=== PATIENT | female | born 1985 | race Caucasian/White ===

== ENCOUNTER 2020-12-11 22:33 | Outpatient (CLI) | payer MEDICAID | END 2020-12-11 23:39 | disposition home or self-care (01) | LOC: LDOP 22:33 | PROVIDERS: ATTEND Obstetrics & Gynecology | DX: O62.9 Abnormality of forces of labor, unspecified (principal); Z3A.00 Weeks of gestation of pregnancy not specified | CPT/HCPCS: 59025 ==

== ENCOUNTER 2020-12-12 01:11 | Inpatient (IN) | payer MEDICAID ==
[2020-12-12] VITALS (7 sets, daily range): BP systolic 90–122; BP diastolic 50–81
[~2020-12-12] VITALS: Ht 147.3 cm; Wt 65.9 kg
[2020-12-12] MEDS ORDERED: LIDOCAINE 1%, 20ML ONE (01:28)
[2020-12-12] MEDS ORDERED: NEWBORN KIT ONE (01:28)
[2020-12-12] MEDS ORDERED: OXYTOCIN 30U/ 0.9% NaCL 500ML 500 ML ONE (01:28)
[2020-12-12] MEDS ORDERED: MISOPROSTOL 200 MCG TABLET ONE (01:28)
[2020-12-12] MEDS ORDERED: LACTATED RINGERS 1,000 ML IV SCH ×2 (01:30→03:30)
[2020-12-12] MEDS ORDERED: CALCIUM CARBONATE 500 MG TAB.CHEW PO PRN ×2 (01:30→06:30)
[2020-12-12] MEDS ORDERED: FENTANYL PF 100 MCG/2ML IV PRN (01:30)
[2020-12-12] MEDS ORDERED: D5%-LACTATED RINGERS 1,000 ML IV SCH (01:30)
[2020-12-12] MEDS ORDERED: FENTANYL PF 100 MCG/2ML IVPush PRN (01:30)
[2020-12-12] MEDS ORDERED: TERBUTALINE 1 MG/ML, 1ML IVPush PRN (01:30)
[2020-12-12] MEDS ORDERED: TERBUTALINE 1 MG/ML, 1ML SQ PRN (01:30)
[2020-12-12] MEDS ORDERED: ONDANSETRON 2MG/ML, 2ML IVPush PRN ×2 (01:30→03:30)
[2020-12-12 02:14] LABS: BASOPHILS % (AUTO) 1 % (0-1); EOSINOPHILS % (AUTO) 0 % (1-7); LYMPHOCYTES % (AUTO) 8 % (22-44); MEAN CORPUSCULAR HEMOGLOBIN 28.3 pg (27.0-34.8); MEAN CORPUSCULAR HGB CONC 34.3 g/dL (32.4-35.8); MONOCYTES % (AUTO) 4 % (2-9); NEUTROPHILS % (AUTO) 88 % (42-75); PLATELET COUNT 241 x10^3/uL (130-400); RED BLOOD COUNT 4.54 x10^6/uL (3.82-5.3); RED CELL DISTRIBUTION WIDTH 13.7 % (9.6-15.2)
[2020-12-12] MEDS ORDERED: BUPIVACAINE 0.25% ONE (02:40)
[2020-12-12] MEDS ORDERED: FENTANYL/BUPIV./NS/PF 250 ML EPIDCONT ONE (02:41)
[2020-12-12] MEDS ORDERED: LACTATED RINGERS 1,000 ML IVBOLUS PRN (03:30)
[2020-12-12] MEDS ORDERED: FENTANYL/BUPIV./NS/PF 250 ML EPIDCONT SCH (03:30)
[2020-12-12] MEDS ORDERED: EPHEDRINE 50 MG/ML, 1ML IVPush PRN (03:30)
[2020-12-12] MEDS ORDERED: NALOXONE 0.4 MG/ML, 1ML IVPush PRN (03:30)
[2020-12-12] MEDS ORDERED: DIPHENHYDRAMINE 50 MG/ML, 1ML IVPush PRN (03:30)
[2020-12-12] MEDS ORDERED: SODIUM CITRATE/CITRIC ACID 15 ML UDC ONE (04:17)
[2020-12-12] MEDS ORDERED: METOCLOPRAMIDE 5 MG/ML, 2ML ONE (04:18)
[2020-12-12] MEDS ORDERED: LIDOCAINE/MPF 2%-EPI 1:200K, 20 ML ONE (04:23)
[2020-12-12] MEDS ORDERED: LACTATED RINGERS 1,000 ML IVBOLUS ONE (04:30)
[2020-12-12] MEDS ORDERED: AZITHROMYCIN 500 MG in SODIUM CHLORIDE 0.9% 250 ML IV ONE (04:30)
[2020-12-12] MEDS ORDERED: morphine SULFATE/PF 0.5 MG/ML, 10ML ONE (04:32)
[2020-12-12] MEDS ORDERED: OXYTOCIN 10 UNITS/ML, 1ML ONE (04:33)
[2020-12-12] MEDS ORDERED: CEFAZOLIN 1,000 MG ONE (04:33)
[2020-12-12] MEDS ORDERED: KETOROLAC 30 MG/1 ML ONE (04:33)
[2020-12-12] MEDS ORDERED: ONDANSETRON 2MG/ML, 2ML ONE (04:33)
[2020-12-12] MEDS ORDERED: DEXAMETHASONE 4 MG/ML, 1ML ONE (04:33)
[2020-12-12] MEDS ORDERED: SODIUM CHLORIDE 0.9% PF 10ML ONE (04:33)
[2020-12-12] MEDS ORDERED: ONDANSETRON 2MG/ML, 2ML IV PRN (06:30)
[2020-12-12] MEDS ORDERED: IBUPROFEN 800 MG TABLET PO PRN (06:30)
[2020-12-12] MEDS ORDERED: OXYcodone/APAP 5/325MG TABLET PO PRN (06:30)
[2020-12-12] MEDS ORDERED: SIMETHICONE 80 MG CHEW TAB PO PRN (06:30)
[2020-12-12] MEDS ORDERED: OXYcodone IR 5MG TABLET PO PRN (06:30)
[2020-12-12] MEDS: LACTATED RINGERS 1,000 ML IV SCH ×7 (06:30→22:36)
[2020-12-12] MEDS ORDERED: CARBOPROST TROMETHAMINE 250 MCG/ML, 1ML IM PRN (06:30)
[2020-12-12] MEDS ORDERED: TRANEXAMIC ACID 100 MG/ML, 10ML IV ONE (06:30)
[2020-12-12] MEDS ORDERED: ACETAMINOPHEN 325 MG TABLET PO PRN ×2 (06:30)
[2020-12-12] MEDS: OXYTOCIN 30U/ 0.9% NaCL 500ML 500 ML IV SCH ×3 (06:30→22:36)
[2020-12-12] MEDS ORDERED: METHYLERGONOVINE 0.2 MG/ML IM PRN (06:30)
[2020-12-12] MEDS ORDERED: MISOPROSTOL 200 MCG TABLET PR PRN (06:30)
[2020-12-12] MEDS: PRENATAL VIT/IRON/FA 1 EACH TABLET PO SCH (09:00)
[2020-12-12] MEDS: KETOROLAC 30 MG/1 ML IV SCH ×3 (09:06→22:51)
[2020-12-12] MEDS: DOCUSATE 100 MG CAPSULE PO PRN ×2 (09:07→19:17)
[2020-12-12 13:53] LABS: BASOPHILS % (AUTO) 0 % (0-1); EOSINOPHILS % (AUTO) 0 % (1-7); LYMPHOCYTES % (AUTO) 5 % (22-44); MEAN CORPUSCULAR HEMOGLOBIN 28.8 pg (27.0-34.8); MEAN CORPUSCULAR HGB CONC 34.7 g/dL (32.4-35.8); MEAN PLATELET VOLUME 7.7 fL (7.4-10.4); MONOCYTES % (AUTO) 6 % (2-9); NEUTROPHILS % (AUTO) 89 % (42-75); PLATELET COUNT 225 x10^3/uL (130-400); RED CELL DISTRIBUTION WIDTH 13.8 % (9.6-15.2)
[2020-12-12] MEDS ORDERED: DIPHENHYDRAMINE 25 MG CAPSULE PO PRN (16:30)
[2020-12-13 03:55] VITALS: BP 88/53
[2020-12-13] MEDS: KETOROLAC 30 MG/1 ML IV SCH ×4 (04:51→23:33)
[2020-12-13 07:32] VITALS: BP 96/60
[2020-12-13] MEDS: DOCUSATE 100 MG CAPSULE PO PRN ×2 (07:41→23:34)
[2020-12-13] MEDS: PRENATAL VIT/IRON/FA 1 EACH TABLET PO SCH (07:42)
[2020-12-13] MEDS: LACTATED RINGERS 1,000 ML IV SCH ×4 (12:30→22:30)
[2020-12-13] MEDS: OXYTOCIN 30U/ 0.9% NaCL 500ML 500 ML IV SCH ×2 (12:30→22:30)
[2020-12-13 21:00] VITALS: BP 113/69
[2020-12-14] MEDS: LACTATED RINGERS 1,000 ML IV SCH (06:30)
[2020-12-14 07:30] VITALS: BP 108/72
[2020-12-14] MEDS: DOCUSATE 100 MG CAPSULE PO PRN (07:31)
[2020-12-14] MEDS: PRENATAL VIT/IRON/FA 1 EACH TABLET PO SCH (07:31)
[2020-12-14] MEDS ORDERED: OXYC1TAB14 PO (10:20)
[2020-12-14] MEDS ORDERED: IBUP-1223 PO (10:20)
== END 2020-12-14 13:10 | disposition home or self-care (01) | DRG 785 ==
LOC: LDOP 01:11 → LDIP 01:28 → 2NW 07:10
PROVIDERS: ADMIT Obstetrics & Gynecology; ATTEND Obstetrics & Gynecology
PROC: 10D00Z1 Extraction of Products of Conception, Low, Open Approach (ICD-10-PCS; principal; 2020-12-12)
PROC: 0UB70ZZ Excision of Bilateral Fallopian Tubes, Open Approach (ICD-10-PCS; 2020-12-12)
DX: O34.211 Maternal care for low transverse scar from previous cesarean delivery (principal); Z20.822 Contact with and (suspected) exposure to COVID-19; O76 Abnormality in fetal heart rate and rhythm complicating labor and delivery; Z30.2 Encounter for sterilization; Z37.0 Single live birth; Z3A.40 40 weeks gestation of pregnancy
CPT/HCPCS: 36415; 85025; 86592; 86762; 86850; 86900; 87635; 88302; G0378; J0690; J1100; J1885; J2274; J2405; J3010; J2590; J7120; Q0163